=== PATIENT | female | born 2005 | race Asian ===

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

== ENCOUNTER 2024-10-18 12:22 | Emergency (ER) | payer BC ==
[~2024-10-18] VITALS: Ht 165.1 cm; Wt 68.0 kg
[~2024-10-18 12:22] MED LIST: ALBUTEROL
[2024-10-18 12:28] VITALS: BP 136/89; PULSE 83; RESP 18; TEMP 98.8; O2SAT 100
== END 2024-10-18 14:10 | disposition left against medical advice (07) ==
LOC: ER 12:22
DX: M25.511 Pain in right shoulder (principal); M25.512 Pain in left shoulder; Z53.21 Procedure and treatment not carried out due to patient leaving prior to being seen by health care provider